=== PATIENT | female | born 1955 | race Caucasian/White ===

== ENCOUNTER 2023-08-18 22:12 | Emergency (ER) | payer MEDICAID, SELFPAY ==
[2023-08-18 22:36] VITALS: BP 165/84; PULSE 73; RESP 16; TEMP 36.7; O2SAT 97
--- NOTE | 2023-08-18 22:55 | CRLHL7_ITS ---
For Patients: As a result of the Cures Act, medical imaging exams and procedure reports are released immediately into your electronic medical record. You may view this report before your referring provider. If you have questions, please contact your health care provider. Indication: Trauma. Technique: Left knee, 3 views. Comparison: None. Findings/impression: Bones: Alignment is normal. No fractures or bone lesions. Joint spaces: Moderate to large suprapatellar effusion. Severe patellofemoral degenerative changes. Mild degenerative changes in the medial and lateral compartments.. Soft tissues: Mild soft tissue swelling surrounding the knee.. Dictated by Clint Angulo MD @ 08/18/2023 11:39:58 PM (Electronically Signed)
--- NOTE | 2023-08-18 22:55 | ED_ITS ---
HPI - General Adult General Chief complaint: Extremity Pain/Injury, Lower Stated complaint: Sore-Knee Time Seen by Provider: 08/18/23 22:40 History of Present Illness HPI narrative: This 67-year-old female comes in with pain and swelling in her left knee. She is normally active and walks regularly and does not describe any particular injury event. She developed pain over the last couple days and now has inability to extend completely or flex fully her left knee joint. She does not report any symptoms of instability or catching or locking. Related Data Home Medications Medication Instructions Recorded Confirmed pravastatin 20 mg tablet 20 mg PO QDAY 12/31/22 01/21/23 estradiol 0.01% (0.1 mg/gram) 1 g vaginal 2XW 01/21/23 01/21/23 vaginal cream Allergies Allergy/AdvReac Type Severity Reaction Status Date / Time cephalexin [From Keflex] Allergy Intermediate Rash Verified 08/18/23 22:40 Penicillins Allergy Mild Rash Verified 01/21/23 10:14 Review of Systems Status of ROS: Reports: 10 or more systems reviewed and unremarkable except as noted in History and below Narrative: Constitutional: No fevers, no weight gain or loss. Eyes: No discharge. No vision changes. HENT: No congestion, no sore throat, no ear pain. Cardiovascular: No chest pain, no palpitations. Respiratory: No shortness of breath, no wheezes, no cough. Gastrointestinal: No abdominal pain, no vomiting, no diarrhea. Genitourinary: No dysuria, no hematuria. Musculoskeletal: Left knee swelling with pain and decreased range of motion. Skin: No rashes, no pruritis. Neurological: No dizziness, weakness, sensory change, speech change. Endo/Heme/Allergies: No bruising or bleeding. No polydipsia. Pysch: no suicidality, no anxiety, no insomnia. All other systems reviewed and are negative. PFSH [facility] Social History Smoking Status: Never smoker Exam Narrative: Exam Narrative: Constitutional: Well-developed, well-nourished, no acute distress. HEENT: Normocephalic, atraumatic. Neck: Normal range of motion. Nontender. Supple. Heart: Intact distal pulses. Lungs: No chest discomfort. No wheezes, rhonchi, or rales. Abdomen: Nontender. Back: Normal range of motion. Extremities: Large effusion in the left knee with inability to completely ex tend the knee joint. Flexion is also restricted due to the large effusion. No sign of ligament instability. Skin: Intact. No rash. Warm. No erythema or pallor. Neurologic: No altered sensation. No weakness. Alert and oriented. Psychiatric: No suicidality. No anxiety or depression. No insomnia. Nursing notes and vitals signs are reviewed. Const: Vital Signs, click to edit/add: Vital Signs - 24 hr 08/18/23 22:36 Temperature 98.0 F Pulse Rate [Right Pulse Oximeter] 73 Respiratory Rate 16 Blood Pressure [Le ft Upper Arm] 165/84 H Pulse Oximetry 97 Oxygen Delivery Me thod Room Air Course Vital Signs Vital signs: Initial Vital Signs Temperature 98.0 F 08/18/23 22:36 Temperature Source Temporal Artery Scan 08/18/23 22:36 Pulse Rate 73 08/18/23 22:36 Pulse Rhythm Regular 08/18/23 22:36 Respiratory Rate 16 08/18/23 22:36 Blood Pressure 165/84 H 08/18/23 22:36 Blood Pressure Mean 111 H 08/18/23 22:36 Blood Pressure Position Semi-Fowlers 08/18/23 22:36 Pulse Oximetry 97 08/18/23 22:36 Oxygen Delivery Method Room Air 08/18/23 22:36 Vital Signs Temperature 98.0 F 08/18/23 22:36 Pulse Rate 73 08/18/23 22:36 Respiratory Rate 16 08/18/23 22:36 Blood Pressure 165/84 H 08/18/23 22:36 Pulse Oximetry 97 08/18/23 22:36 Oxygen Delivery Method Room Air 08/18/23 22:36 Temperature 98.0 F 08/18/23 22:36 Pulse Rate 73 08/18/23 22:36 Respiratory Rate 16 08/18/23 22:36 Blood Pressure 165/84 H 08/18/23 22:36 Pulse Oximetry 97 08/18/23 22:36 Oxygen Delivery Method Room Air 08/18/23 22:36 Medical Decision Making MDM Narrative Medical decision making narrative: This patient comes in with pain and significant swelling of her left knee from an effusion. She does not have any specific injury event to trigger this. This is a large effusion and she has some associated decreased range of motion. X- ray imaging by my review shows no acute findings except for the large effusion. The patient does have an appointment with orthopedic clinic in 3 days. She received a pair of crutches and a prescription for some tablets of Wolverine. Discharge Plan Discharge Clinical Impression: Effusion of knee joint, left Patient Disposition: Home, Self-Care Condition: Unchanged Additional Instructions: Use crutches to assist in ambulating. Take medication as needed and directed. Follow-up with orthopedic clinic appointment as scheduled. Return if worsening. Prescriptions: No Action pravastatin 20 mg tablet 20 mg PO QDAY estradiol 0.01 % (0.1 mg/gram) cream 1 g vaginal 2XW Follow Up/Referrals: Shakira Almonte PA [Primary Care Provider] - Stand Alone Forms: [employer] Info Instructions
--- NOTE | 2023-08-19 00:12 | ED.NURSE ---
crutches given to pt. demo and return demo with pt. no questions upon discharge.
== END 2023-08-19 00:14 | disposition home or self-care (01) ==
PROVIDERS: Emergency Provider Emergency Medicine Emergency Medical Services; PCP Physician Assistant
DX: M25.462 Effusion, left knee (principal)
CPT/HCPCS: 73562; 99283; 99284

== ENCOUNTER 2023-08-31 09:06 | Outpatient (CLI) | payer MEDICARE, SELFPAY ==
--- NOTE | 2023-08-31 09:15 | MR_ITS ---
[address] [address] Phone:?[phone] Fax:?[phone] Referring Physician Information: Gabrielle Anderson [address] [facility] [address] Phone:?[phone] Fax:?[phone] Patient:Jian Beltran D.O.B:?1955 Sex:?Female Phone:?[phone] [facility] MRN:?[id number] Exam Date:?08/31/2023 EXAM: MRI of the LEFT KNEE, without contrast CLINICAL INFORMATION: Female, 68 years old, with knee pain and instability. INDICATION: Unilateral primary osteoarthritis. Evaluate meniscus. PRIOR SURGERY: None reported. PLAIN FILMS: Radiographs 08/18/2023. COMPARISONS: No prior MRIs available. TECHNICAL INFORMATION: Using a 1.5T MR scanner and a localizing surface coil: sagittals: PD, PDFS coronals: PD, T2FS axials: PD, PDFS SEDATION: None CONTRAST: None FINDINGS: Knee joint: Effusion: Large sized left knee effusion with synovitis. Popliteal cyst: Small popliteal cyst, with minimal fluid along the medial head of the gastrocnemius suggesting partial rupture and leaking fluid. Loose bodies: None. Subcutaneous and extra-articular soft tissues: Unremarkable. Ligaments: ACL: Intact ACL anteromedial and posterolateral bundles, without sprain or tear. PCL: Intact PCL, without acute or chronic injury. MCL: Intact MCL superficial and deep layers, without injury. LCL: Intact LCL, without injury. Posterolateral corner: No posterolateral corner soft tissue injury. Popliteus, biceps femoris, iliotibial band, popliteofibular ligament and lateral gastrocnemius are intact. Posteromedial corner: No posteromedial corner soft tissue injury. Semimembranosus, pes anserine tendons and posterior oblique ligament are without injury, tendinopathy or bursitis. Extensor mechanism: Patellar tendon: Intact, without tendinopathy. Quadriceps tendon: Intact, without tendinopathy. Retinacula: Medial and lateral retinacula are intact. Fat pads: Unremarkable infrapatellar Hoffa's, quadriceps and prefemoral fat pads. Medial compartment: Medial meniscus: Apical free edge fraying of the medial meniscus at the level of the posterior horn/root. No displaced medial meniscal flap. Medial femoral condyle: Small region of grade III chondromalacia along the central weightbearing surface measuring approximately 1.4 x 1.1 cm with full- thickness fissuring. No underlying marrow reactive edema. Medial tibial plateau: No chondromalacia or osteochondral abnormality. Lateral compartment: Lateral meniscus: Short segment apical free edge blunting/tearing along the body segment of the lateral meniscus (coronal series 8 image 19). Lateral femoral condyle: Intra-articular osteophyte along the far anterior weightbearing lateral femoral condyle measuring approximately 1.4 x 1.5 cm with overlying full-thickness chondral loss (sagittal series 5 image 18, and coronal series 7 image 15). There is grade 2 chondral heterogeneity along the central weightbearing surface. Mild peripheral osteophytosis. Lateral tibial plateau: Mild grade I/II chondral heterogeneity along the central lateral tibial plateau. Patellofemoral joint: Patella: Broad-based full-thickness chondral loss of the lateral patellar facet and central midline ridge. Grade 2 chondral thinning of the medial patellar facet. Mild underlying marrow reactive edema. Trochlea: Broad-based full-thickness chondral loss of the lateral trochlea with mild underlying cystic change in moderate osteophytosis. Proximal tibiofibular joint: Unremarkable, without evidence of ligament sprain injury, joint effusion or adjacent marrow edema. Bones: No stress/occult fractures or other marrow edema/pathology. IMPRESSION: 1. Advanced patellofemoral osteoarthritis as described above with broad-based full-thickness chondral loss. 2. Apical free edge fraying of the posterior horn/root medial meniscus. 3. Short segment apical free blunting/tearing of the body segment lateral meniscus. 4. Mild lateral compartment chondromalacia as described above with intra- articular osteophyte anteriorly. 5. Mild chondromalacia of the medial femoral condyle. 6. No cruciate or collateral ligament sprain/tear. 7. Large size knee joint effusion. Small popliteal cyst with suggested partial rupture and leaking fluid. KME Electronically signed on 09/02/2023 7:42:00 PM by Vane Calle M.D.
== END 2023-08-31 09:07 | disposition home or self-care (01) ==
PROVIDERS: PCP Physician Assistant; Visit Provider Physician Assistant
DX: M25.562 Pain in left knee (principal); M17.12 Unilateral primary osteoarthritis, left knee; M25.462 Effusion, left knee; M94.262 Chondromalacia, left knee; S83.282A Other tear of lateral meniscus, current injury, left knee, initial encounter
CPT/HCPCS: 73721

== ENCOUNTER 2023-10-06 12:30 | Outpatient (RCR) | payer MEDICARE, SELFPAY ==
--- NOTE | 2023-09-15 13:49 | PT.OPEX ---
initial eval requires signature PT [facility] Eval PT [facility] Outpatient Eval Start: 09/15/23 12:07 Freq: Status: Active Protocol: Document 09/15/23 12:11 ILIA (Rec: 09/15/23 13:44 ILIA [id number]) E-signed By Tommy Hancock DPT Physical Therapy Outpatient Evaluation Insurance Information Recert Due Date 12/09/23 Insurance Name Medicare B,are Medical Diagnosis Oa L knee Treating Diagnosis L knee pain Referring MD malcolm wilkinson Subjective Subjective Meryl comes into clinic dealing with L knee pain. States the knee pain is improving day to day, allowing her to progress activity more and more due to this. Does states she has moments of the L knee hyperextending leading to instability and pain. She is very active, enjoys hiking, swimming, biking, sometimes going to the gym as well. She was offered injection but pt elected to hold off on right now MRI findings found shows fraying of the posterior horn/ root of the medial meniscus but does not state root tear. Advanced patellofemoral arthritis with broad-based full-thickness chondromalacia Pain Comments 2-08/04 Current Work Status Retired Occupation retired CARDIAC CARE NURSE Precautions Treatment Precautions/Contraindications hx of R knee meniscectomy Objective Other/Pertinent Objective GAIT/FUNCTIONAL MOBILITY ambulates with decreased pace increased Trendelenburg pattern decreased TKE on L KNEE ROM R 5-125 L 10-110 LLE MMT: Hip flexion: R4+ /5 L4+ /5 Hip abduction: R 4-/5 L 4-/5 Knee flexion: R 5/5 L 4+/5 Knee extension: R4+ /5 L 3/5 SPECIAL TEST Joint line tenderness: increased medial joint line pain Jonathan test: deferred due to MRI results JOINT MOBILITY/PALPATION tenderness with medial and posterior medial knee palpation, increased hamstring tightness L >R Assessment Assessment/Impression Pt is a 68 yr old female who presents with concerns of L knee pain . Signs and symptoms likely indicating / consistent with knee OA . Patient also has notable objective findings including limited ROM, impaired gait, decreased strength also likely contributing to the problem. Patient is a good candidate for skilled therapy to target deficits described above. Skilled PT intervention is necessary for use of therapeutic exercise manual therapy, neuromuscular re- education, gait training, and therapeutic activity. Functional impairments include difficulty with: walking, hiking, swimming stairs . See appropriate sections of PT eval for complete list of goals and POC. D/C plan and criteria is for pt to achieve the goals as listed below or until max rehab potential is met. Pt was agreeable with plan of care and goals established Plan of Care Rehabilitation Potential Good Physical Therapy Goals STG Patient will demonstrate/ report ability to walk for >60 minutes on even terrain with pain level <1/10, to allow for community and household ambulation within 4 weeks Patient will be able to participate in swim class for 45-60 minutes without pain 1-2 times a week within 4 weeks LTG Patient will demonstrate/ report ability to walk for >60 minutes on uneven terrain with pain level <1/10, to allow for community and household ambulation within 8 weeks Patient will demonstrate/ report ability to climb 12 steps with handrail in reciprocal fashion, to allow for household and community ambulation within 8 weeks Pt will be independent with HEP within 8 weeks to allow for independence and continued improvement past formal therapy Treatment Plan/Direct Interventions Gait Training,Joint Mobilization,Manual Therapy, Neuromuscular Re-ed,Self-Care/ Home Management,Therapeutic Activities,Therapeutic Exercises Frequency/Duration 1 visit every 1-2 weeks for 6- 12 visits Patient Will Be Discharged From Therapy Completion of LTG(s), Independent w/HEP, Independently Progressing Evaluation Billing Untimed Code Treatment Minutes 30 Complexity Low Certification Information Physician Comment/Change : Physician NPI Number #
== END 2023-11-24 14:39 | disposition home or self-care (01) ==
PROVIDERS: PCP Physician Assistant; Visit Provider Physician Assistant
DX: M17.12 Unilateral primary osteoarthritis, left knee (principal); M25.562 Pain in left knee; Z51.89 Encounter for other specified aftercare
CPT/HCPCS: 97110; 97140; 97161

== ENCOUNTER 2025-03-09 10:07 | Outpatient (CLI) | payer MEDICARE, SELFPAY ==
[2025-03-15 05:52] LABS: HPV Source Cervical; HPV, High Risk by TMA Detected
[2025-03-15 14:31] LABS: HPV Genotype 16 by TMA Not Detected; HPV Genotype 18/45 by TMA Not Detected; HPVG Source Cervical
== END 2025-03-09 10:08 | disposition home or self-care (01) ==
PROVIDERS: PCP Physician Assistant; Visit Provider Obstetrics & Gynecology
DX: Z12.4 Encounter for screening for malignant neoplasm of cervix (principal); Z11.51 Encounter for screening for human papillomavirus (HPV)
CPT/HCPCS: 87624; 87625; 88141; 88142